=== PATIENT | male | born 1970 | race Caucasian/White ===

== ENCOUNTER 2021-08-13 18:54 | Emergency (ER) | payer MEDICAID ==
[~2021-08-13] VITALS: Ht 172.7 cm; Wt 70.9 kg
[2021-08-13 18:59] VITALS: BP 122/89
--- NOTE | 2021-08-14 00:01 | NUR ---
PT AMBULATORY WITH STEADY GAIT AND ABLE TO SPEAK IN FULL SENTENCES, REFUSING TO LEAVE DEPARTMENT AT THIS TIME.
== END 2021-08-14 00:11 | disposition home or self-care (01) ==
LOC: ED 19:00
DX: F10.220 Alcohol dependence with intoxication, uncomplicated (principal); Y90.9 Presence of alcohol in blood, level not specified
CPT/HCPCS: 99283